=== PATIENT | male | born 1945 | race Caucasian/White ===

== ENCOUNTER 2016-10-26 10:47 | Emergency (ER) | payer MEDICARE, OTHER ==
[~2016-10-26] VITALS: Ht 182.9 cm; Wt 75.0 kg
[~2016-10-26 10:47] MED LIST: CLIN200T PO; TYLE3 PO; Z.0.NO CURRENT MEDS
[2016-10-26 10:49] VITALS: BP 129/59; PULSE 77; RESP 12; TEMP 97.4; O2SAT 95
[2016-10-26] MEDS ORDERED: LEVO25TA4 PO (11:04)
[2016-10-26] MEDS ORDERED: LISI-519 PO (11:04)
[2016-10-26] MEDS ORDERED: TRAM50TA PO (11:04)
[2016-10-26] MEDS ORDERED: SIMV40TA PO (11:04)
[2016-10-26] MEDS ORDERED: MELO-1 PO (11:04)
--- NOTE | 2016-10-26 11:20 | PD ---
HPI Chief Complaint: Fall Time Seen by Provider: 11:16 Travel History International Travel<30 days: No Contact w/Intl Traveler<30days: No Traveled to known affect area: No History of Present Illness HPI 71-year-old male presents to the emergency department for evaluation after trip and fall that occurred approximately one hour ago. He was trying to run to catch a bus when he tripped over a curb and fell. He states that he landed on his knees in the dorsal hands and then hitting his face. He denies loss of consciousness. He denies neck pain or back pain. No chest pain or abdominal pain. No vomiting. He was able to walk 2 blocks after the fall. He denies any hip or pelvic pain. He has abrasions to the face, nose, cheeks, bilateral hands, bilateral knees. He states his tetanus immunization was one year ago. He denies taking anticoagulants or having any bleeding disorders. Patient complains of left hand and left wrist pain. He has no other complaints at this time. PFSH Past Medical History Arthritis: Yes Blood Disorders: No High Cholesterol: Yes Diminished Hearing: No Hypertension: Yes Musculoskeletal: Yes (L LOWER LEG FX) Respiratory: Yes (TB 40 YEARS AGO) Thyroid Disease: Yes Tetanus Vaccination: < 5 Years Influenza Vaccination: Yes Past Surgical History Other Surgery: Yes (left hand stingray surgery) Social History Alcohol Use: Yes (occ) Tobacco Use: Yes (QUIT) Substance Use: No Allergies-Medications (Allergen,Severity, Reaction): Coded Allergies: No Known Allergies (Verified , 10/26/16) Reported Meds & Prescriptions Reported Meds & Active Scripts Active Keflex (Cephalexin) 500 Mg Cap 500 Mg PO Q8H 7 Days Reported Levothyroxine (Levothyroxine Sodium) 25 Mcg Tab 25 Mcg PO DAILY Meloxicam 15 Mg Tab 15 Mg PO DAILY Lisinopril 5 Mg Tab 5 Mg PO DAILY Simvastatin 40 Mg Tab 40 Mg PO HS Tramadol (Tramadol HCl) 50 Mg Tab 50 Mg PO Q6H PRN Review of Systems Except as stated in HPI: all other systems reviewed are Neg Physical Exam Narrative GENERAL: Well-developed well-nourished male patient, ambulatory. Afebrile. SKIN: Warm and dry. Patient has superficial abrasion noted to the forehead, nose, cheek, bilateral dorsal hand, bilateral anterior knees. No lacerations noted. HEAD: Normocephalic. EYES: No scleral icterus. No injection or drainage. PERRLA. ENT: Mucosa pink and moist. No erythema or exudates. No uvular edema. No uvular , palatal, or tonsillar deviation. Airway patent. Nasal turbinates appear normal without nasal blood, purulent drainage or septal hematoma. Bilateral tympanic membranes are clear without erythema or perforation. NECK: Supple, trachea midline. No JVD or lymphadenopathy. CARDIOVASCULAR: Regular rate and rhythm without murmurs, gallops, or rubs. RESPIRATORY: Breath sounds equal bilaterally. No accessory muscle use. Lungs sounds are clear to auscultation. GASTROINTESTINAL: Abdomen soft, non-tender, nondistended. MUSCULOSKELETAL: No cyanosis, or edema. Patient has tenderness over left dorsal wrist and left dorsal hand. No other bony point tenderness. BACK: Nontender without obvious deformity. No CVA tenderness. No midline spinal tenderness. He has full range of motion of the cervical spine without pain or stiffness. Data Data Last Documented VS Vital Signs Date Time Temp Pulse Resp B/P Pulse Ox O2 Delivery O2 Flow Rate FiO2 10/26/16 10:49 97.4 77 12 129/[address] Brain W/O Iv Contrast(Rout) (10/26/16 ) Ct Facial Bones W/O Iv Cont (10/26/16 ) Wrist, Complete ([id number]) (10/26/16 ) Hand, Complete ([id number]) (10/26/16 ) Splint Or Brace Apply/Monitor (10/26/16 12:16) MDM Medical Decision Making Medical Screen Exam Complete: Yes Emergency Medical Condition: Yes Medical Record Reviewed: Yes Interpretation(s) Last Impressions Wrist X-Ray 10/26/16 0000 Signed Impressions: Service Date/Time: Wednesday, October 26, 2016 11:54 - CONCLUSION: 1. Nondisplaced fracture base of the fifth metacarpal Mike Byrne MD Maxillofacial CT 10/26/16 0000 Signed Impressions: Service Date/Time: Wednesday, October 26, 2016 12:28 - CONCLUSION: 1. No acute bony fractures. 2. Focal mild chronic sinus disease in the right sphenoid sinus. Donnie Parnell MD Head CT 10/26/16 0000 Signed Impressions: Service Date/Time: Wednesday, October 26, 2016 12:24 - CONCLUSION: Normal examination for a patient of this age. Donnie Parnell MD Hand X-Ray 10/26/16 0000 Signed Impressions: Service Date/Time: Wednesday, October 26, 2016 11:50 - CONCLUSION: 1. Nondisplaced fracture base of the fifth metacarpal Mike Byrne MD Differential Diagnosis Contusion versus fracture versus dislocation versus abrasion Narrative Course 71-year-old male presents to the emergency department after a trip and fall. He did hit his head, but denies loss of consciousness. Patient complains of left hand and left wrist pain. CT of the brain and facial bones are ordered and pending. X-ray of the left hand and left wrist are ordered and pending. CT of the brain shows normal examination for a patient of this age.. CT of the facial bones shows no acute bony injury. X-ray of the left wrist shows nondisplaced fracture base of the fifth metacarpal. X-ray of the left hand shows nondisplaced fracture base of the fifth metacarpal. Patient is placed in an ulnar gutter splint and instructed to follow up with hand surgeon. Patient is instructed on proper wound care. He'll be discharged prescription for Keflex for infection prevention. He also requests something stronger for pain. He is currently prescribed tramadol, but would like something stronger. He is instructed to not take the tramadol with the new prescription. Diagnosis Primary Impression: Fracture of fifth metacarpal bone of left hand Qualified Code: S62.397A - Other closed fracture of fifth metacarpal bone of left hand, initial encounter Additional Impressions: Abrasion, multiple sites Closed head injury Qualified Code: S09.90XA - Closed head injury, initial encounter Referrals: Primary Care Physician call for appointment Patient Instructions: Abrasion (ED), General Instructions, Hand Fracture (ED), Head Injury (ED) Additional Instructions: Take antibiotic as directed until gone. Take Lortab as needed for pain. Do not take with tramadol. Clean abrasions twice daily with soap and water and apply [id number] antibiotic ointment. Follow-up with your primary care physician or hand surgeon. Return to the emergency department for any acute worsening of symptoms. Med/Other Pt SpecificInfo: Prescription(s) given Scripts Hydrocodone-Acetaminophen (Lortab)5-325 Mg Tab1 Tab PO Q6H PRN (PAIN) #12 TAB Ref 0 Prov:Gilberto Logan MD 10/26/16 Cephalexin (Keflex)500 Mg [id number] Mg PO Q8H 7 Days Ref 0 Prov:Lelia Cook 10/26/16 Disposition: 01 DISCHARGE HOME Condition: Stable Lelia Cook Oct 26, 2016 11:20
--- NOTE | 2016-10-26 12:00 | RADRPT ---
EXAM DATE/TIME: 10/26/2016 11:50 [facility] COMPARISON: No previous studies available for comparison. INDICATIONS : Left hand pain, fall. MEDICAL HISTORY : None. SURGICAL HISTORY : None. ENCOUNTER: Initial ACUITY: 1 day PAIN SCORE: 10/10 LOCATION: Left hand, fifth digit FINDINGS: There is a fracture at the base of the fifth metacarpal. There is osteoarthritis involving the first carpometacarpal compartment. No intra-articular extension is present. CONCLUSION: 1. Nondisplaced fracture base of the fifth metacarpal Mike Byrne MD on October 26, 2016 at 11:58 Board Certified Radiologist. This report was verified electronically.
--- NOTE | 2016-10-26 12:01 | RADRPT ---
EXAM DATE/TIME: 10/26/2016 11:54 [facility] COMPARISON: No previous studies available for comparison. INDICATIONS : Left wrist pain, fall. MEDICAL HISTORY : None. SURGICAL HISTORY : None. ENCOUNTER: Initial ACUITY: 1 day PAIN SCORE: 10/10 LOCATION: Left wrist FINDINGS: The carpal bones appear intact. There is a nondisplaced fracture at the base of the fifth metacarpal. No intra-articular extension is present. CONCLUSION: 1. Nondisplaced fracture base of the fifth metacarpal Mike Byrne MD on October 26, 2016 at 11:59 Board Certified Radiologist. This report was verified electronically.
--- NOTE | 2016-10-26 12:57 | RADRPT ---
EXAM DATE/TIME: 10/26/2016 12:24 [facility] COMPARISON: No previous studies available for comparison. INDICATIONS : Slipped and fell in parking lot abrasions on frontal area. RADIATION DOSE: 35.41 CTDIvol (mGy) MEDICAL HISTORY : Hypertension. TB SURGICAL HISTORY : None. ENCOUNTER: Initial ACUITY: 1 day PAIN SCALE: 10/10 LOCATION: cranial TECHNIQUE: Multiple contiguous axial images were obtained of the head. Using automated exposure control and adj ustment of the mA and/or kV according to patient size, radiation dose was kept as low as reasonably a chievable to obtain optimal diagnostic quality images. FINDINGS: CEREBRUM: The ventricles are normal for age. No evidence of midline shift, mass lesion, hemorrhage or acute in farction. No extra-axial fluid collections are seen. POSTERIOR FOSSA: The cerebellum and brainstem are intact. The 4th ventricle is midline. The cerebellopontine angle i s unremarkable. EXTRACRANIAL: The visualized portion of the orbits is intact. SKULL: The calvaria is intact. No evidence of skull fracture. CONCLUSION: Normal examination for a patient of this age. Donnie Parnell MD on October 26, 2016 at 12:54 Board Certified Radiologist. This report was verified electronically.
--- NOTE | 2016-10-26 12:59 | RADRPT ---
EXAM DATE/TIME: 10/26/2016 12:28 [facility] COMPARISON: No previous studies available for comparison. INDICATIONS : Fell hit nose today . RADIATION DOSE: 34.08 CTDIvol (mGy) MEDICAL HISTORY : Hypertension. TB SURGICAL HISTORY : None. ENCOUNTER: Initial ACUITY: 1 day PAIN SCORE: 10/10 LOCATION: facial TECHNIQUE: Volumetric scanning of the facial bones was performed. Using automated exposure control and adjustme nt of the mA and/or kV according to patient size, radiation dose was kept as low as reasonably achiev able to obtain optimal diagnostic quality images. FINDINGS: ORBITS: The orbital and infraorbital osseous structures are intact. The retroconal structures have a normal configuration. No radiopaque foreign bodies are seen. NASAL BONE: The nasal bone and maxillary spine are intact ZYGOMATIC ARCHES: Symmetric without evidence of fracture. SINUSES: The maxillary, ethmoid and frontal sinuses are intact. No air-fluid levels seen. There is mild mucos al thickening in the right sphenoid sinus. NASAL CAVITY: The nasal septum is intact and midline. The lacrimal ducts are intact. SOFT TISSUES: No radiopaque foreign bodies seen. No soft-tissue swelling is seen. INTRACRANIAL: No intracranial air seen. CRIBIFORM PLATE: Grossly intact. CONCLUSION: 1. No acute bony fractures. 2. Focal mild chronic sinus disease in the right sphenoid sinus. Donnie Parnell MD on October 26, 2016 at 12:56 Board Certified Radiologist. This report was verified electronically.
[2016-10-26] MEDS ORDERED: CEPH-460 PO ×2 (13:36→13:39)
[2016-10-26] MEDS ORDERED: HYDR-3533 PO (13:36)
== END 2016-10-26 13:58 | disposition home or self-care (01) ==
LOC: NEPA 10:47
DX: S62.397A Other fracture of fifth metacarpal bone, left hand, initial encounter for closed fracture (principal); S09.90XA Unspecified injury of head, initial encounter; W10.1XXA Fall (on)(from) sidewalk curb, initial encounter; Y93.02 Activity, running
CPT/HCPCS: 29125; 70450; 70486; 73110; 73130